=== PATIENT | male | born 1995 | race Caucasian/White ===

== ENCOUNTER 2017-09-11 05:33 | Day surgery (SDC) | payer OTHER ==
[~2017-09-11] VITALS: Ht 175.3 cm; Wt 104.3 kg
[~2017-09-11 05:33] MED LIST: BUSPIRONE HCL10 MG PO; ESCITALOPRAM OX20 MG PO; ESZOPICLONE2 MG PO; HYDROCODONE-AP1 EAC6 PO; MOBIC15 MG PO; ROPINIROLE HCL0.5 MG PO
[2017-09-11 13:53] VITALS: BP 114/76
== END 2017-09-11 17:50 | disposition home or self-care (01) ==
LOC: OR 05:33 → TBA 05:34 → OR 09:58
DX: M72.2 Plantar fascial fibromatosis (principal); M77.32 Calcaneal spur, left foot; M79.672 Pain in left foot; F32.9 Major depressive disorder, single episode, unspecified; F41.9 Anxiety disorder, unspecified; Z98.890 Other specified postprocedural states; Z79.899 Other long term (current) drug therapy
CPT/HCPCS: 50010; 50101; 50386; 56525; 56526; 56527; 57091; 62110; 62850; 70005